=== PATIENT | male | born 1950 | race Caucasian/White ===

== ENCOUNTER 2021-03-25 06:26 | Observation (INO) | payer MEDICARE ==
[2021-03-25] MEDS ORDERED: Aspirin Chewable 81 MG TAB ONE (06:45)
[2021-03-25] MEDS ORDERED: Nitroglycerin 0.4 MG TAB 1 EACH ONE (06:48)
[2021-03-25 06:51] LABS: #Basophils 0.1 10x3/uL (0.0-0.2); #Eosinphils 0.1 10x3/uL (0.0-0.5); #Monocytes 0.7 10x3/uL (0.0-1.1); #Neutrophils 8.4 10x3/uL (1.5-8.4); %Basophils 0.5 % (0.0-2.0); %Eosinophils 1.1 % (0.0-6.0); %Lymphocytes 12.1 % (18.0-47.0); %Monocytes 6.3 % (0.0-10.0); %Neutrophils 79.4 % (40.0-75.0); Hemoglobin 15.5 g/dL (13.5-17.5); Mean Corpuscular HGB CONC 31.8 g/dL (32.0-36.0); Mean Platelet Volume 11.2 fl (7.4-10.4); Platelet Count 244 10x3/uL (150-450); RBC Distribution Width 12.1 % (11.5-14.5); Red Blood Cell (RBC) Count 5.35 10x6/uL (4.32-5.72); White Blood Cell (WBC) Count 10.6 10x3/uL (3.5-10.5)
[2021-03-25 07:05] LABS: ALT (SGPT) 23 U/L (8-55); AST (SGOT) 16 U/L (5-34); Albumin 4.6 g/dL (3.4-4.8); Alkaline Phosphatase 77 U/L (40-110); Anion Gap 15 mmol/L (10-20); BUN (Urea Nitrogen) 12 mg/dL (8.4-25.7); Bilirubin, Total 0.8 mg/dL (0.2-1.2); Calc. Creatinine Clearance 0 mL/min (70-130); Calcium 9.4 mg/dL (7.8-10.44); Carbon Dioxide 25 mmol/L (23-31); Chloride 107 mmol/L (98-107); Globulin 2.4 g/dL (2.4-3.5); Glucose 107 mg/dL (80-115); Lipase 14 U/L (8-78); Potassium 4.3 mmol/L (3.5-5.1); Sodium 143 mmol/L (136-145)
[2021-03-25] MEDS ORDERED: Acetaminophen 325 MG TAB PO PRN (07:44)
[2021-03-25] MEDS ORDERED: Ondansetron PF 4 MG/2 ML Vial IVP PRN (07:44)
[2021-03-25] MEDS ORDERED: Nitroglycerin 0.4 MG TAB (25 Tab Bottle) SL PRN (07:49)
[2021-03-25 08:20] LABS: Cardiac Risk 5.8 (Less than 4.5)
[2021-03-25 08:26] LABS: Troponin I Less than 0.010 ng/mL (< 0.028)
[2021-03-25 10:53] VITALS: BMI 25.5
[2021-03-25] MEDS: Aspirin 81 mg Enteric Coated Tablet PO SCH (11:18)
[2021-03-25] MEDS ORDERED: Ketorolac Tromethamine 30 MG/ML VIAL IVP SCH (11:30)
[2021-03-25] MEDS ORDERED: Enoxaparin Sodium 40 MG/0.4 ML SYRINGE SC SCH (12:00)
[2021-03-25 14:35] LABS: Troponin I Less than 0.010 ng/mL (< 0.028)
[2021-03-25] MEDS ORDERED: TAURINE 1000 MG PO SCH (21:00)
[2021-03-25] MEDS: Calcium Carbonate 600 MG + Vit D TAB PO SCH (21:19)
[2021-03-25] MEDS: Cholecalciferol 1,000 UNITS (25 MCG) TAB PO SCH (21:20)
[2021-03-26 00:15] LABS: SARS-CoV-2 PCR by NAA Not Detected (NotDetected)
[2021-03-26 04:08] LABS: #Eosinphils 0.2 10x3/uL (0.0-0.5); #Monocytes 0.5 10x3/uL (0.0-1.1); #Neutrophils 4.4 10x3/uL (1.5-8.4); %Basophils 0.6 % (0.0-2.0); %Eosinophils 2.3 % (0.0-6.0); %Lymphocytes 22.5 % (18.0-47.0); %Monocytes 7.4 % (0.0-10.0); %Neutrophils 66.7 % (40.0-75.0); Hemoglobin 14.3 g/dL (13.5-17.5); Mean Corpuscular HGB CONC 31.6 g/dL (32.0-36.0); Mean Corpuscular Hemoglobin 28.9 pg (27.0-33.0); Mean Corpuscular Volume 91.5 fl (81.2-95.1); Platelet Count 219 10x3/uL (150-450); Red Blood Cell (RBC) Count 4.95 10x6/uL (4.32-5.72); White Blood Cell (WBC) Count 6.6 10x3/uL (3.5-10.5)
[2021-03-26 04:29] LABS: Anion Gap 13 mmol/L (10-20); BUN (Urea Nitrogen) 15 mg/dL (8.4-25.7); Calc. Creatinine Clearance 65 mL/min (70-130); Calcium 9.1 mg/dL (7.8-10.44); Carbon Dioxide 27 mmol/L (23-31); Chloride 107 mmol/L (98-107); Glucose 107 mg/dL (80-115); Sodium 142 mmol/L (136-145)
[2021-03-26] MEDS: Aspirin 81 mg Enteric Coated Tablet PO SCH (08:39)
[2021-03-26] MEDS: Calcium Carbonate 600 MG + Vit D TAB PO SCH (08:39)
[2021-03-26] MEDS: Cholecalciferol 1,000 UNITS (25 MCG) TAB PO SCH (08:39)
[2021-03-26] MEDS ORDERED: QUERCETIN DIHYDRATE 1 GM PO SCH (09:00)
[2021-03-26] MEDS ORDERED: Zinc Gluconate 50 MG TAB PO SCH (09:00)
[2021-03-26] MEDS ORDERED: Enoxaparin Sodium 40 MG/0.4 ML SYRINGE SC SCH (09:00)
[2021-03-26 09:40] VITALS: BP 164/70; TEMP 97.4
== END 2021-03-26 11:07 | disposition home or self-care (01) ==
LOC: CSHERS 06:26 → CSHTELE 07:49
PROVIDERS: ADMIT Internal Medicine; ATTEND Physician Assistant Medical
DX: R07.89 Other chest pain (principal); E78.5 Hyperlipidemia, unspecified; K21.9 Gastro-esophageal reflux disease without esophagitis; Z79.82 Long term (current) use of aspirin; Z79.899 Other long term (current) drug therapy; M10.9 Gout, unspecified; Z87.891 Personal history of nicotine dependence; Z20.822 Contact with and (suspected) exposure to COVID-19
CPT/HCPCS: 71045; 80048; 80053; 80061; 83690; 84484 ×2; 85025 ×2; 85379; 93005 ×2; 93306; 94760; 96372; 96374; 99285; G0378 ×2; U0003; U0005; 36415; 93010; J1650; J1885